=== PATIENT | male | born 2000 | race Caucasian/White ===

== ENCOUNTER 2022-03-19 23:13 | Emergency (ER) | payer MEDICAID ==
[~2022-03-19] VITALS: Ht 180.3 cm; Wt 75.0 kg
[2022-03-19 23:30] VITALS: BP 118/74
[2022-03-20] MEDS ORDERED: SULF1TAB38 PO (01:37)
--- NOTE | 2022-03-20 01:38 | ED Lower Extremity ---
General Chief Complaint: Lower Extremity Stated Complaint: RT KNEE PAIN,KNEE SURGERY 10.22.21 Nursing Triage Note: PT AMB TO RM 8 WITH C/O R KNEE PAIN, REDDNESS AND SWELLING. PT STATES HE HAD SURGERY IN OCTOBER IN [place] AND NOW A SCAB APPEARS. PT STATES HE WANTS TO MAKE SURE IT IS NOT INFECTED AND NO STITCHES REMAIN Source: patient Exam Limitations: no limitations History of Present Illness Date Seen by Provider: Mar 20, 2022 Time Seen by Provider: 01:29 Allergies and Home Medications Allergies Coded Allergies: No Known Drug Allergies (Unverified , 03/20/22) Past Kmhqmof-Ayluou-Opejss Hx Patient Social History Tobacco Use?: Yes Substance use?: Yes Substance type: Marijuana Alcohol Use?: Yes Alcohol Frequency: Daily Immunizations Up To Date Influenza Vaccine Up-to-Date: No; Not Current First/Initial COVID19 Vaccinat: NA Past Medical History Surgery/Hospitalization HX: KNEE SURGERY OCTOBER 2021, RODS IN R HAND Physical Exam Vital Signs Vital Signs - First Documented 03/19/22 23:30 Temp 36.6 Pulse 91 Resp 14 B/P (MAP) 118/74 (89) Capillary Refill : Height, Weight, BMI Height: '" Weight: lbs. oz. kg; 23.00 BMI Method: Progress/Results/Core Measures Results/Orders Vital Signs/I&O 03/19/22 23:30 Temp 36.6 Pulse 91 Resp 14 B/P (MAP) 118/74 (89) Blood Pressure Mean: 89 Departure Impression Primary Impression: Surgical wound infection Disposition: HOME, SELF-CARE Condition: Stable Departure-Patient Inst. Decision time for Depature: 01:36 Referrals: NO,LOCAL PHYSICIAN (PCP/Family) Primary Care Physician Patient Instructions: Wound Infection Add. Discharge Instructions: Complete your antibiotics as prescribed. You may apply warm moist compresses for 20 to 30 minutes 3 or 4 times a day to encourage any further draining to occur. Avoid irritation of the area by kneeling on the affected skin. Contact your surgeon if you have worsening symptoms despite following these instructions. Return to the ER if you have significantly worsening symptoms or develop fevers. All discharge instructions reviewed with patient and/or family. Voiced understanding. Scripts Sulfamethoxazole/Trimethoprim (Bactrim Ds Tablet) 1 Each Tablet 1 EACH PO BID, #14 TAB Prov: LARA RUDOLPH MD 03/20/22 LARA RUDOLPH MD Mar 20, 2022 01:37
[2022-03-20] MEDS ORDERED: TRIM/SULFAMETH 160/800 (SEPTRA DS) TAB PO ONE (01:45)
== END 2022-03-20 02:20 | disposition home or self-care (01) ==
LOC: ER 23:20
DX: T81.49XA Infection following a procedure, other surgical site, initial encounter (principal); Z28.310 Unvaccinated for COVID-19
CPT/HCPCS: 99283

== ENCOUNTER 2023-03-01 17:02 | Emergency (ER) | payer MEDICAID ==
[~2023-03-01] VITALS: Ht 180 cm; Wt 81.6 kg
[~2023-03-01 17:02] MED LIST: SULF1TAB38 PO
[2023-03-01 17:16] VITALS: BP 130/94
[2023-03-01] MEDS ORDERED: PENI500T PO ×2 (17:25→17:55)
[2023-03-01] MEDS ORDERED: ACHD5005 PO ×2 (17:25→17:55)
--- NOTE | 2023-03-01 17:27 | ED EENT ---
History of Present Illness General Chief Complaint: Oral/Throat Problems Stated Complaint: GUMS SPLITTING AFTER REMOVAL OF TEETH Nursing Triage Note: PT PRESENTS TO ED VIA POV FROM HOME WITH COMPLAINTS OF DENTAL/GUM PAIN AFTER HAVING SEVEN TEETH PULLED ON THURSDAY. Source: patient Exam Limitations: no limitations History of Present Illness Date Seen by Provider: Mar 01, 2023 Time Seen by Provider: 17:21 Initial Comments Patient is a 22-year-old male presents to ED with right upper dental pain and left upper dental pain. Patient states he had [address] Chamberlain on Thursday. States he did receive some hydrocodone with some improvement of the pain. He is currently taken Tylenol. States the pain has slightly increased today. He did look at his teeth noted some bleeding of his gums. He denies any redness or drainage. He has been eating soft foods such as applesauce. He reports some mild swelling to the left side of the face but no increased swelling at this time. He denies fever, chills, nausea vomit, diarrhea, headache or dizziness. Allergies and Home Medications Allergies Coded Allergies: No Known Drug Allergies (Unverified , 03/20/22) Patient Home Medication List Home Medication List Reviewed: Yes Hydrocodone/Acetaminophen (Hydrocodone-Acetamin 5-325 mg) 5 Mg-325 Mg Tablet, 1 TAB PO Q4H PRN for PAIN-MODERATE (5-7) Prescribed by: YONATAN HERNANDEZ on 03/01/23 1726 Penicillin V Potassium (Penicillin V Potassium) 500 Mg Tablet, 500 MG PO QID Prescribed by: YONATAN HERNANDEZ on 03/01/23 1725 Sulfamethoxazole/Trimethoprim (Bactrim Ds Tablet) 1 Each Tablet, 1 EACH PO BID Prescribed by: LARA KINGSLEY on 03/20/22 0137 Review of Systems Review of Systems Constitutional: No chills, No diaphoresis Eyes: Denies Blurred Vision, Denies Drainage, Denies Decreased Acuity Ears: Denies Dizziness, Denies Pain Nose: denies clots, denies congestion Mouth: denies loose teeth; pain, swelling Throat: denies pain, denies swelling Respiratory: No cough, No dyspnea on exertion Cardiovascular: No chest pain Gastrointestinal: No abdominal pain, No diarrhea, No nausea, No vomiting Musculoskeletal: No back pain, No joint pain, No joint swelling, No muscle pain Skin: No change in color, No change in hair/nails All Other Systems Reviewed Negative Unless Noted: Yes Past Mtcdkdi-Vcloai-Nvxcsc Hx Patient Social History Tobacco Use?: Yes Tobacco type used: Cigarettes Smoking Status: Current Everyday Smoker Substance use?: Yes Substance type: Marijuana Alcohol Use?: Yes Alcohol Frequency: Once in a while Pt feels they are or have been: No Immunizations Up To Date First/Initial COVID19 Vaccinat: NA Second COVID19 Vaccination Robel: NA Third COVID19 Vaccination Date: NA Past Medical History Surgery/Hospitalization HX: KNEE SURGERY OCTOBER 2021, RODS IN R HAND Surgeries: Yes Orthopedic Respiratory: No Cardiac: No Neurological: No Genitourinary: No Gastrointestinal: No Musculoskeletal: No Endocrine: No HEENT: No Cancer: No Psychosocial: No Physical Exam Vital Signs Vital Signs - First Documented 03/01/23 17:16 Temp 36.6 Pulse 72 Resp 18 B/P (MAP) 130/94 (106) Pulse Ox 99 Height, Weight, BMI Height: '" Weight: lbs. oz. kg; 25.00 BMI Method: General Appearance: WD/WN, no apparent distress Eyes: bilateral eye normal inspection, bilateral eye PERRL, bilateral eye EOMI Ears: bilateral ear auricle normal, bilateral ear canal normal, bilateral ear TM normal Nose: normal inspection Mouth/Throat: other (Very superficial cracking of the gums of the upper right lateral incisor. Mild gum erythema. No active drainage or fluctuant mass. 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 Patient had 7 teeth removed Thursday. Most of the teeth were removed in the front and towards the right lateral. He noted cracking of the gums today. He reports eating a soft diet. Was taking hydrocodone but now currently taken Tylenol. Denies pain out of proportion. He does have some swelling to the left side of the face but states this appears to be improving. He is concerned for the cracking of the gums. On exam he does have areas of very minimal cracking. Gums are not completely split to were the tooth is extracted. There is no bone exposure suggesting dry socket at this time. May be developing an infection, gum irritation versus healing process. At this time offered local anesthetic patient refused. Did suggest oral gel local to the gum that is cracking. Will discharge with a few days worth of hydrocodone and started on penicillin VK prophylactically. Since it is the weekend not able to follow-up with his dentist. Recommend following up tomorrow with dentist for reevaluation. Continue with soft foods. If any worsening symptoms return back to ED. Impression Primary Impression: Pain, dental Disposition: 01 HOME, SELF-CARE Condition: Stable Departure-Patient Inst. Decision time for Depature: 17:24 Referrals: [facility] [place],LOCAL PHYSICIAN (PCP) Primary Care Physician Patient Instructions: Dental Pain (DC) Add. Discharge Instructions: Take antibiotics as prescribed as well as pain medication. Continue with soft food. Oral gel topical follow-up with your dentist tomorrow for further evaluation. All discharge instructions reviewed with patient and/or family. Voiced understanding. Scripts Penicillin V Potassium (Penicillin V Potassium) 500 Mg Tablet 500 MG PO QID for 7 Days, #29 TAB Prov: STELLA RODRÍGUEZ 03/01/23 Hydrocodone/Acetaminophen (Hydrocodone-Acetamin 5-325 mg) 5 Mg-325 Mg Tablet 1 TAB PO Q4H PRN for PAIN-MODERATE (5-7), #6 TAB Prov: STELLA RODRÍGUEZ 03/01/23 STELLA RODRÍGUEZ Mar 01, 2023 17:27
== END 2023-03-01 17:32 | disposition home or self-care (01) ==
LOC: EDUNIT# 17:02 → ER 17:04
DX: K08.89 Other specified disorders of teeth and supporting structures (principal); F17.210 Nicotine dependence, cigarettes, uncomplicated; Z98.818 Other dental procedure status
CPT/HCPCS: 99282